=== PATIENT | male | born 1940 | race Caucasian/White ===

== ENCOUNTER → 2019-11-10 | Day surgery (SDC) | payer MEDICARE, BC ==
[2019-11-03 15:18] LABS: PRE OP INR 1.1 INR; PRE OP PROTIME 11.1 SECONDS (9.0-12.0)
[2019-11-03 15:21] LABS: BASOPHILS # (AUTO) 0.1 X10'3 (0-0.2); BASOPHILS % (AUTO) 1.1 % (0-1); EOSINOPHILS # (AUTO) 0.2 X10'3 (0-0.9); EOSINOPHILS % (AUTO) 3.5 % (0-6); LYMPHOCYTES # (AUTO) 2.3 X10'3 (1.1-4.8); LYMPHOCYTES % (AUTO) 34.9 % (21-51); MEAN CORPUSCULAR HEMOGLOBIN 34.9 PG (27.0-31.0); MEAN CORPUSCULAR HGB CONC 34.8 g/dL (33.0-36.5); MEAN CORPUSCULAR VOLUME 100.3 FL (78-98); MEAN PLATELET VOLUME 10.3 FL (7.4-10.4); MONOCYTES # (AUTO) 0.8 X10'3 (0-0.9); MONOCYTES % (AUTO) 12.7 % (2-12); NEUTROPHILS # (AUTO) 3.1 X10'3 (1.8-7.7); NEUTROPHILS % (AUTO) 47.8 % (42-75); PRE OP HEMATOCRIT 44.9 % (42.0-52.0); PRE OP HEMOGLOBIN 15.6 g/dL (14.0-17.9); PRE OP PLATELET COUNT 160 X10'3 (140-440); RED BLOOD COUNT 4.47 X10'6 (4.70-6.10); RED CELL DISTRIBUTION WIDTH 14.1 % (11.5-14.5)
[2019-11-03 15:28] LABS: ALBUMIN 4.1 G/DL (3.4-5.0); ALBUMIN/GLOBULIN RATIO 1.4 (1.1-1.5); ALKALINE PHOSPHATASE 103 IU/L (46-116); BLOOD UREA NITROGEN 16 MG/DL (7-18); BUN/CREATININE RATIO 15.5 (5.4-32.0); CALCIUM 9.1 MG/DL (8.5-10.1); CHLORIDE 104 MMOL/L (99-107); CREATININE 1.03 MG/DL (0.60-1.10); PRE OP ALT 23 U/L (30-65); PRE OP ANION GAP 5 (8-16); PRE OP AST 17 U/L (10-37); PRE OP BILIRUB, TOTAL 1.2 MG/DL (0.0-1.0); PRE OP GLUCOSE 120 MG/DL (70-104); PRE OP POTASSIUM 4.3 MMOL/L (3.4-5.1); PRE OP SODIUM 140 MMOL/L (135-145); TOTAL CARBON DIOXIDE 31.5 MMOL/L (24-32); TOTAL PROTEIN 7.1 G/DL (6.4-8.2); eGFR 69 ML/MIN
[2019-11-10] VITALS (15 sets, daily range): BP systolic 96–158; BP diastolic 52–88
[~2019-11-10] VITALS: Ht 188 cm; Wt 83.9 kg
[~2019-11-10] MED LIST: AMIO200T61 PO; CARV-50 PO; DOCUMENT DATE & TIME OF BETA-BLOCKER PO ONE; FLO0.4C PO; LEVO100T PO; MIDAZolam 5mg/5ml vial ONE; SULF1TAB49 PO; ampicillin inj 1 GM in normal saline 100ml IV soln 100 ML IV ONE; famotidine 20mg tablet PO ONE; fentaNYL/PF 50MCG/1 ML 2ML syringe IV PRN; fentaNYL/PF 50MCG/1 ML 2ML syringe ONE; gentamicin inj 400 MG in normal saline 100ml IV soln 100 ML IV ONE; hydrALAZINE 20mg/ml inj. IV PRN; labetalol 20mg/4ml (5mg/ml) syringe IV PRN; morphine 4 MG/ML inj SYRINge IV PRN; ondansetron/PF 4mg/2ml inj IV PRN; ringers solution, lacted 1,000 ML IV SCH
--- NOTE | 2019-11-10 11:47 | NUR ---
Received from OR via SURGICAL BED , accompanied by Anesthesiologist NARDA and report given by Anesthesiolgist. PATIENT WITH 18G PIV IN LEFT UE RUNNING LR AT 100. DENIES PAIN. SENSATION LEVEL AT L1 CURRENTLY. [address] DASILVA PRESENT WITH CLEAR URINE. Addendum: 11/10/19 at 1209 by Geovani Hendricks RN, RN Amended: Links added.
--- NOTE | 2019-11-10 12:16 | NUR ---
ACCUCHLEÓN OF 96 IN RR Addendum: 11/10/19 at 1216 by Geovani Yip - HARMEET RN Amended: Links added.
--- NOTE | 2019-11-10 12:47 | NUR ---
ALL CRITERIA FOR TRANSFER TO THE FLOOR HAS BEEN ACHIEVED. VSS. BED LOW, CALL LIGHT AND VS. SET IN PLACE. RN PRESENT TO ACCEPT CARE. PATIENT RESTING COMFORTABLY IN BED. BELONGINGS SENT WITH PATIENT. DRESSINGS CDI. PATIENT VSS. DENIES PAIN. URINE IN CATHETER IS CLEAR. AT BEDSIDE, BELONGINGS WITH PATIENT. RN PRESENT AT BEDSIDE TO ACCEPT CARE. Addendum: 11/10/19 at 1254 by Geovani Yip - HARMEET RN Amended: Links added.
--- NOTE | 2019-11-10 18:00 | NUR ---
Pt initally did not appear safe to discharge due to temperature regulation and return of lower extremity function after spinal. I called Dr Farias to ask about possiblity of admit orders if patient was not appropriate to send home. Also notified him that there was some blood now in urine bag. Color was a light fruit punch color, not dark and no clots. Pt checked again for safety of mobility prior to 1730 and he was much more stable and after bear hugger was on for more than an hour was getting much better reading for temperature. 98.0. Patient felt better about discharge at that point and did to so we did not need to do discharge orders and pt was able to safely go home with leg bag and night bag per dr farias order and will continue home meds with follow up with at scheduled appt. Pt encouraged to drink pleanty of fluids and watch urine output color, rest if darkening and call Dr farias or come back to ER with issues. Recovery room discharge done with guidance from Geovani GAreading recovery teacher room. Floor discharge was not done since patient was not admitted.
--- NOTE | 2019-11-10 18:53 | NUR ---
PATIENT BROUGHT TO FLOOR FOLLOWING SPINAL ANESTHESIA, REQUESTED PATIENT BE HELD UNTIL THEY COULD WALK SAFELY ONCE ANESTHESIA WAS METABOLIZED. Patient discharged home into the care of after walking the unit without issue and lifting and depressing legs against weight. Patient IV removed, left with all belongs, verbalized understanding of discharge instructions and care of the rodriguez as well as follow up. Patient was alert, oriented, and appropriate for discharge and advised on the warning signs and symptoms to look for regarding a need to return to the ER or contact MD.
--- NOTE | 2019-11-10 19:15 | NUR ---
Patient was 97.3 upon transfer from recovery, so RN Geovani came to the floor with bear hugger heater and patient's temperature mendel 98.0 orally after bear hugger utilization. Patient was on the floor from approximately 1230 to 1800 until the return of motor function post anesthesia per MD Peralta. MD notified about possibility to keep patient overnight if motor function was not satisfactory. Rechecked at 1645 and full leg function had returned, and patient comfortable with progress.
== END | disposition home or self-care (01) ==
LOC: PAS 09:21 → EDSTATUS 12:30
PROVIDERS: ATTEND Urology
DX: N40.1 Benign prostatic hyperplasia with lower urinary tract symptoms (principal); N13.8 Other obstructive and reflux uropathy; N41.1 Chronic prostatitis; N41.0 Acute prostatitis; I10 Essential (primary) hypertension; I25.2 Old myocardial infarction; Z87.442 Personal history of urinary calculi; Z87.891 Personal history of nicotine dependence; Z95.5 Presence of coronary angioplasty implant and graft; Z98.890 Other specified postprocedural states; Z79.899 Other long term (current) drug therapy; Z79.01 Long term (current) use of anticoagulants
CPT/HCPCS: 36415; 52500; 52601; 80053; 82948; 84443; 85025; 85610; 85730; 86885; 86900; 86901; J0290; J1580; J2250; J3010; J7120; A4346; A4355; A4615

== ENCOUNTER 2019-11-13 06:21 | Emergency (ER) | payer MEDICARE, BC ==
[~2019-11-13] VITALS: Ht 188 cm; Wt 82.1 kg
[~2019-11-13 06:21] MED LIST changes: -DOCUMENT DATE & TIME OF BETA-BLOCKER PO ONE; -MIDAZolam 5mg/5ml vial ONE; -ampicillin inj 1 GM in normal saline 100ml IV soln 100 ML IV ONE; -famotidine 20mg tablet PO ONE; -fentaNYL/PF 50MCG/1 ML 2ML syringe IV PRN; -fentaNYL/PF 50MCG/1 ML 2ML syringe ONE; -gentamicin inj 400 MG in normal saline 100ml IV soln 100 ML IV ONE; -hydrALAZINE 20mg/ml inj. IV PRN; -labetalol 20mg/4ml (5mg/ml) syringe IV PRN; -morphine 4 MG/ML inj SYRINge IV PRN; -ondansetron/PF 4mg/2ml inj IV PRN; -ringers solution, lacted 1,000 ML IV SCH
[2019-11-13 08:02] VITALS: BP 182/104
[2019-11-13 09:16] LABS: CLARITY,URINE CLOUDY (Clear); COLOR,URINE RED (Yellow); GLUCOSE, URINE NEGATIVE (Neg); KETONES,URINE NEGATIVE (Neg); LEUKOCYTE ESTERASE ,URINE SMALL (Neg); NITRITES, URINE NEGATIVE (Neg); OCCULT BLOOD,URINE LARGE (Neg); PROTEIN,URINE 100 mg/dl (Neg)
[2019-11-13] MEDS ORDERED: morphine 4 MG/ML inj SYRINge IM ONE (09:25)
[2019-11-13 09:39] LABS: UA COLLECTION TYPE FOLEY CATH
[2019-11-13 09:41] LABS: RBC,URINE TNTC /HPF (0-2); WBC,URINE 0-4 /HPF (0-4)
[2019-11-13 09:42] LABS: BACTERIA,URINE NONE SEEN /HPF (Neg); MUCUS STRANDS FEW /LPF (Neg); SQUAMOUS EPITHELIAL CELL,UR NONE SEEN /LPF (FEW)
[2019-11-13 09:43] LABS: TRANSITIONAL EPI CELLS,URINE FEW /HPF
--- NOTE | 2019-11-13 10:10 | NUR ---
CATH REPLACED WITH A [address]
== END 2019-11-13 10:12 | disposition home or self-care (01) ==
LOC: ER 06:22
DX: T83.038A Leakage of other urinary catheter, initial encounter (principal); I25.10 Atherosclerotic heart disease of native coronary artery without angina pectoris; E78.00 Pure hypercholesterolemia, unspecified; Z79.899 Other long term (current) drug therapy; Y84.6 Urinary catheterization as the cause of abnormal reaction of the patient, or of later complication, without mention of misadventure at the time of the procedure; Y92.89 Other specified places as the place of occurrence of the external cause
CPT/HCPCS: 51700; 81001; 87088; 96372; 99284; J2270; 88305

== ENCOUNTER 2021-08-06 10:03 | Outpatient (CLI) | payer MEDICARE, BC ==
[~2021-08-06] VITALS: Ht 188 cm; Wt 88.5 kg
[2021-08-06 10:42] LABS: BASOPHILS # (AUTO) 0.1 X10'3 (0-0.2); BASOPHILS % (AUTO) 0.8 % (0-1); EOSINOPHILS # (AUTO) 0.5 X10'3 (0-0.9); EOSINOPHILS % (AUTO) 7.3 % (0-6); HEMOGLOBIN 16.2 g/dl (14.0-17.9); LYMPHOCYTES # (AUTO) 2.3 X10'3 (1.1-4.8); LYMPHOCYTES % (AUTO) 31.7 % (21-51); MEAN CORPUSCULAR HEMOGLOBIN 33.5 PG (27.0-31.0); MEAN CORPUSCULAR HGB CONC 34.4 g/dL (33.0-36.5); MEAN CORPUSCULAR VOLUME 97.3 FL (78-98); MEAN PLATELET VOLUME 9.9 FL (7.4-10.4); MONOCYTES # (AUTO) 0.9 X10'3 (0-0.9); MONOCYTES % (AUTO) 12.2 % (2-12); NEUTROPHILS # (AUTO) 3.5 X10'3 (1.8-7.7); PLATELET COUNT 179 X10'3 (140-440); RED BLOOD COUNT 4.84 X10'6 (4.70-6.10); RED CELL DISTRIBUTION WIDTH 13.7 % (11.5-14.5); WHITE BLOOD COUNT 7.2 X10'3 (4.5-11.0)
[2021-08-06 10:55] LABS: PARTIAL THROMBOPLASTIN TIME 27 SECONDS (22-32)
[2021-08-06] MEDS ORDERED: IODIXANOL 320 MG/ML INFUS..BTL 50ML IV ONE (10:56)
[2021-08-06] MEDS ORDERED: IODIXANOL 320 MG/ML INFUS..BTL 100ML IV ONE ×2 (10:56→11:46)
[2021-08-06 10:57] LABS: ALANINE AMINOTRANSFERASE 27 U/L (12-78); ALBUMIN 3.9 G/DL (3.4-5.0); ALBUMIN/GLOBULIN RATIO 1.3 (1.1-1.5); ALKALINE PHOSPHATASE 91 IU/L (46-116); ANION GAP 8 (8-16); ASPARTATE AMINO TRANSFERASE 19 U/L (10-37); BILIRUBIN,TOTAL 1.6 MG/DL (0.1-1.0); BLOOD UREA NITROGEN 17 MG/DL (7-18); BUN/CREATININE RATIO 17.2 (5.4-32.0); CALCIUM 8.5 MG/DL (8.5-10.1); CHLORIDE 106 MMOL/L (99-107); CREATININE 0.99 MG/DL (0.60-1.10); GLUCOSE 126 MG/DL (70-104); POTASSIUM 4.1 MMOL/L (3.5-5.1); SODIUM 142 MMOL/L (135-145); TOTAL CARBON DIOXIDE 28.2 MMOL/L (24-32); TOTAL PROTEIN 6.8 G/DL (6.4-8.2); eGFR 72 ML/MIN
[2021-08-06] MEDS ORDERED: albuterol 2.5 MG/3 ML nebule NEB ONE (12:50)
[2021-08-21] MEDS ORDERED: ASPI-611 PO (18:49)
== END 2021-08-06 23:59 | disposition home or self-care (01) ==
LOC: RAD 10:03
PROVIDERS: ATTEND Internal Medicine Cardiovascular Disease
DX: I65.23 Occlusion and stenosis of bilateral carotid arteries (principal); I25.10 Atherosclerotic heart disease of native coronary artery without angina pectoris; I35.0 Nonrheumatic aortic (valve) stenosis; R94.2 Abnormal results of pulmonary function studies; Z20.822 Contact with and (suspected) exposure to COVID-19
CPT/HCPCS: 36415; 71046; 71275; 74174; 80053; 85025; 85610; 85730; 87635; 93005; 93880; 94060; 94727; 94729; 94760; C9803; Q9967

== ENCOUNTER 2021-08-28 09:06 | Inpatient (IN) | payer MEDICARE, BC ==
[2021-08-26 11:58] LABS: BASOPHILS % (AUTO) 0.8 % (0-1); EOSINOPHILS # (AUTO) 0.3 X10'3 (0-0.9); EOSINOPHILS % (AUTO) 5.1 % (0-6); LYMPHOCYTES # (AUTO) 2.2 X10'3 (1.1-4.8); LYMPHOCYTES % (AUTO) 37.9 % (21-51); MEAN CORPUSCULAR HEMOGLOBIN 34.1 PG (27.0-31.0); MEAN CORPUSCULAR HGB CONC 34.2 g/dL (33.0-36.5); MEAN CORPUSCULAR VOLUME 99.7 FL (78-98); MEAN PLATELET VOLUME 10.9 FL (7.4-10.4); MONOCYTES # (AUTO) 0.8 X10'3 (0-0.9); MONOCYTES % (AUTO) 14.3 % (2-12); NEUTROPHILS # (AUTO) 2.5 X10'3 (1.8-7.7); NEUTROPHILS % (AUTO) 41.9 % (42-75); PRE OP HEMOGLOBIN 15.7 g/dL (14.0-17.9); PRE OP PLATELET COUNT 172 X10'3 (140-440); RED BLOOD COUNT 4.62 X10'6 (4.70-6.10); RED CELL DISTRIBUTION WIDTH 14.1 % (11.5-14.5)
[2021-08-26 12:04] LABS: PRE OP INR 1.1 INR; PRE OP PROTIME 11.1 SECONDS (9.0-12.0)
[2021-08-26 12:16] LABS: ALBUMIN 4.1 G/DL (3.4-5.0); ALBUMIN/GLOBULIN RATIO 1.4 (1.1-1.5); ALKALINE PHOSPHATASE 78 IU/L (46-116); BLOOD UREA NITROGEN 13 MG/DL (7-18); BUN/CREATININE RATIO 13.8 (5.4-32.0); CHLORIDE 108 MMOL/L (99-107); CREATININE 0.94 MG/DL (0.60-1.10); PRE OP ALT 24 U/L (30-65); PRE OP ANION GAP 8 (8-16); PRE OP AST 17 U/L (10-37); PRE OP BILIRUB, TOTAL 1.9 MG/DL (0.0-1.0); PRE OP GLUCOSE 117 MG/DL (70-104); PRE OP POTASSIUM 3.9 MMOL/L (3.4-5.1); PRE OP SODIUM 143 MMOL/L (135-145); TOTAL CARBON DIOXIDE 27.1 MMOL/L (24-32); eGFR 77 ML/MIN
[2021-08-26 12:26] LABS: LARGE PLATELETS FEW; PLATELET ESTIMATE NORMAL
[2021-08-28] VITALS (14 sets, daily range): BP systolic 113–140; BP diastolic 58–88
[~2021-08-28] VITALS: Ht 188 cm; Wt 88.5 kg
[2021-08-28] MEDS: nitroPRUSSIDE (NIPRIDE) (200MCG/ML) 100ML Drip IV SCH ×2 (05:30→20:35)
[2021-08-28] MEDS: phenylephrine 50 MG in NS 250ml IVPB IV SCH (08:24)
[~2021-08-28 09:06] MED LIST changes: -AMIO200T61 PO; +ASPI-611 PO; +DOCUMENT DATE & TIME OF BETA-BLOCKER PO ONE; -SULF1TAB49 PO; +aspirin 325mg tablet PO ONE; +cefazolin/dext.iso 2gm/100ml IV ONE; +famotidine 20mg tablet PO ONE; +ondansetron/PF 4mg/2ml inj IV PRN; +phenylephrine 50 MG in NS 250ml IVPB IV SCH; +ringers solution, lacted 1,000 ML IV SCH; +vancomycin 1,500 MG in NS 300ml IV soln IV ONE
[2021-08-28 11:53] LABS: CLARITY,URINE CLEAR (Clear); COLOR,URINE STRAW (Yellow); PH,URINE 7.5 (4.8-8.0); UA COLLECTION TYPE VOIDED
[2021-08-28 11:54] LABS: GLUCOSE, URINE NEGATIVE (Neg); PROTEIN,URINE NEGATIVE (Neg)
[2021-08-28 11:55] LABS: KETONES,URINE 40 mg/dl (Neg); LEUKOCYTE ESTERASE ,URINE SMALL (Neg); NITRITES, URINE NEGATIVE (Neg); OCCULT BLOOD,URINE NEGATIVE (Neg); UROBILINOGEN,URINE 0.2 E.U/dL (0.2-1.0)
[2021-08-28 12:13] LABS: SQUAMOUS EPITHELIAL CELL,UR FEW /LPF (FEW); TRANSITIONAL EPI CELLS,URINE MODERATE /HPF
[2021-08-28 12:14] LABS: BACTERIA,URINE FEW /HPF (Neg); RBC,URINE 0-2 /HPF (0-2); WBC,URINE 0-4 /HPF (0-4)
[2021-08-28] MEDS ORDERED: iohexol 350MG/ML 100ml bottle IV ONE (12:49)
[2021-08-28] MEDS ORDERED: iohexol 350 MG/ML 50ML vial IV ONE (12:49)
[2021-08-28] MEDS ORDERED: heparin 1,000 UNITS/NS 500ml 500 ML ONE (12:49)
[2021-08-28] MEDS ORDERED: LIDOcaine 1% (10mg/ml)w/preservative injection 20ml MDV ONE (12:49)
[2021-08-28] MEDS ORDERED: protamine sulf. 10mg/ml inj. IV ONE (12:56)
[2021-08-28] MEDS ORDERED: fentaNYL/PF 50MCG/1 ML 2ML syringe ONE (12:57)
[2021-08-28] MEDS ORDERED: midazolam 1 mg/ML 2ml injection ONE (12:58)
[2021-08-28] MEDS ORDERED: propofol inj 20 ML IV ONE (13:00)
[2021-08-28] MEDS ORDERED: heparin 1,000unit/ml 10ml vial 10 ML ONE (13:17)
[2021-08-28] MEDS ORDERED: proCHLORperazine 10 MG/2 ml inj IV PRN (13:35)
[2021-08-28] MEDS ORDERED: ringers solution, lacted 1,000 ML IV SCH (13:35)
[2021-08-28] MEDS ORDERED: meperidine/PF 25mg/ml syringe IV PRN ×3 (13:35)
[2021-08-28] MEDS ORDERED: ondansetron/PF 4mg/2ml inj IV PRN ×2 (13:35→14:20)
[2021-08-28] MEDS ORDERED: morphine 2 MG/ML inj. syringe IV PRN (13:35)
[2021-08-28] MEDS ORDERED: morphine 4 MG/ML inj SYRINge IV PRN (13:35)
[2021-08-28] MEDS ORDERED: protamine sulfate 10mg/ml inj. ONE ×2 (14:03→14:04)
[2021-08-28] MEDS ORDERED: magnesium 4gm in 100ml NS 100 ML IV PRN (14:20)
[2021-08-28] MEDS ORDERED: labetalol 20mg/4ml (5mg/ml) syringe IV PRN (14:20)
[2021-08-28] MEDS ORDERED: diphenhydrAMINE 25mg capsule PO PRN (14:20)
[2021-08-28] MEDS ORDERED: hydrALAZINE 20mg/ml inj. IV PRN (14:20)
[2021-08-28] MEDS ORDERED: ALPRAZolam 0.25mg tablet PO PRN (14:20)
[2021-08-28] MEDS ORDERED: magnesium 2GM in 50ml NS 50 ML IV PRN (14:20)
[2021-08-28] MEDS ORDERED: potassium Cl 40MEQ/1/2NS 520ml 520 ML IV PRN (14:20)
[2021-08-28] MEDS ORDERED: potassium Cl 20 mEq SR tablet PO PRN (14:20)
[2021-08-28] MEDS ORDERED: docusate sod 100mg capsule PO PRN (14:20)
[2021-08-28] MEDS ORDERED: potassium CL 10mEq/100ml bag 100 ML IV PRN (14:20)
[2021-08-28] MEDS ORDERED: pantoprazole 40mg Tablet.DR PO PRN (14:20)
--- NOTE | 2021-08-28 14:20 | NUR ---
Received from OR via BED , accompanied by Anesthesiologist LAURENCE and report given by Anesthesiolgist. patient with bilateral inguinal dressings are cdi no ss of hematoma, neurologically intact, smile all symetrical tongue is midline, director of clinical services equal, dorsalis on feet are palpable/doppler art line in left UE an 18G right hand running LR at 100 scds donned, patient denies pain. Addendum: 08/28/21 at 1450 by Geovani Hendricks RN, RN Amended: Links added.
--- NOTE | 2021-08-28 15:16 | NUR ---
SECOND CHECK ON INGUINAL SITES. NOTH STILL CDI AND SOFT TO TOUCH. NO BLEEDING OR SWELLING AT THIS TIME. + DPS ON BILATERAL FEET. VSS. VOIDED AND PATIENT RESTING COMFORTABLY. STILL NEUROLOGICALLY INTACT WITH PUSH PULLS ETC. Addendum: 08/28/21 at 1517 by Geovani Hendricks RN, RN Amended: Links added.
--- NOTE | 2021-08-28 15:49 | NUR ---
CARE TRANSFERED TO HARMEET DAVID. VSS. BED LOW, CALL LIGHT PRESENT. GAS TREATER KEVIN PRESENT TO ASSIST WITH SET UP OF VS....ETC. PATIENT DENIES PAIN. INGUINAL SITES BOTH CDI. + DPS ON DOPPLER/ MANUAL TOUCH BY HARMEET DAVID. PATIENT WITH NO C.O. AT THIS TIME. Addendum: 08/28/21 at 1554 by Geovani Yip - HARMEET GA Amended: Links added.
[2021-08-28] MEDS: ceFAZolin 1GM/D5W- ADD-VANTAGE 50 ML IV SCH (16:25)
[2021-08-28] MEDS: sod chloride 0.9% 10ml flush syringe IV SCH (17:25)
[2021-08-28] MEDS: acetaminophen 325mg tablet PO PRN (17:26)
--- NOTE | 2021-08-28 18:00 | NUR ---
Patient in room PCU 3013. I have received report from Yvette GA and had the opportunity to ask questions and assume patient care.
--- NOTE | 2021-08-28 18:21 | NUR ---
Problems reprioritized. Patient report given, questions answered & plan of care reviewed with HARMEET HENNING.
[2021-08-28] MEDS: vancomycin/NS 1 GM ADD-VANTAGE 250 ML IV SCH (21:40)
[2021-08-28] MEDS: carvedilol 6.25mg tablet PO SCH (21:41)
[2021-08-28] MEDS: normal saline 1000ml 1,000 ML IV SCH (21:45)
[2021-08-29] VITALS: BP 127/61
[2021-08-29] MEDS: sod chloride 0.9% 10ml flush syringe IV SCH ×2 (00:11→08:01)
[2021-08-29] MEDS: ceFAZolin 1GM/D5W- ADD-VANTAGE 50 ML IV SCH ×2 (00:11→08:01)
[2021-08-29] MEDS: normal saline 1000ml 1,000 ML IV SCH ×2 (00:20→10:38)
[2021-08-29 02:00] VITALS: BP 129/67
[2021-08-29] MEDS: phenylephrine 50 MG in NS 250ml IVPB IV SCH (03:15)
[2021-08-29 04:00] VITALS: BP 130/61
[2021-08-29 05:08] LABS: BASOPHILS # (AUTO) 0.1 X10'3 (0-0.2); BASOPHILS % (AUTO) 0.7 % (0-1); EOSINOPHILS # (AUTO) 0.1 X10'3 (0-0.9); EOSINOPHILS % (AUTO) 1.4 % (0-6); HEMATOCRIT 35.1 % (42.0-52.0); HEMOGLOBIN 11.8 g/dl (14.0-17.9); LYMPHOCYTES # (AUTO) 1.3 X10'3 (1.1-4.8); LYMPHOCYTES % (AUTO) 13.3 % (21-51); MEAN CORPUSCULAR HGB CONC 33.5 g/dL (33.0-36.5); MEAN CORPUSCULAR VOLUME 92.5 FL (78-98); MEAN PLATELET VOLUME 9.4 FL (7.4-10.4); MONOCYTES % (AUTO) 10.3 % (2-12); NEUTROPHILS # (AUTO) 7.4 X10'3 (1.8-7.7); NEUTROPHILS % (AUTO) 74.3 % (42-75); PLATELET COUNT 115 X10'3 (140-440); RED CELL DISTRIBUTION WIDTH 13.9 % (11.5-14.5); WHITE BLOOD COUNT 9.9 X10'3 (4.5-11.0)
[2021-08-29 05:24] LABS: ALANINE AMINOTRANSFERASE 17 U/L (12-78); ALBUMIN 3.1 G/DL (3.4-5.0); ALBUMIN/GLOBULIN RATIO 1.1 (1.1-1.5); ALKALINE PHOSPHATASE 59 IU/L (46-116); ANION GAP 7 (8-16); ASPARTATE AMINO TRANSFERASE 30 U/L (10-37); BILIRUBIN,TOTAL 0.6 MG/DL (0.1-1.0); BLOOD UREA NITROGEN 30 MG/DL (7-18); BUN/CREATININE RATIO 21.7 (5.4-32.0); CALCIUM 8.6 MG/DL (8.5-10.1); CHLORIDE 105 MMOL/L (99-107); CREATININE 1.38 MG/DL (0.60-1.10); GLUCOSE 94 MG/DL (70-104); MAGNESIUM 1.7 MG/DL (1.5-2.4); POTASSIUM 3.7 MMOL/L (3.5-5.1); SODIUM 143 MMOL/L (135-145); TOTAL CARBON DIOXIDE 31.2 MMOL/L (24-32); eGFR 49 ML/MIN
--- NOTE | 2021-08-29 06:45 | NUR ---
Patient in room PCU 3013. I have received report from VASILE GA and had the opportunity to ask questions and assume patient care.
[2021-08-29] MEDS ORDERED: levoTHYROXINE 100mcg tablet PO SCH (07:00)
[2021-08-29 08:00] VITALS: BP 105/83
[2021-08-29] MEDS ORDERED: aspirin 81mg, enteric-coated 1 TAB TABLET.DR PO SCH (08:00)
[2021-08-29] MEDS ORDERED: tamsulosin 0.4mg capsule PO SCH (08:00)
[2021-08-29] MEDS: carvedilol 6.25mg tablet PO SCH (08:00)
[2021-08-29] MEDS: vancomycin/NS 1 GM ADD-VANTAGE 250 ML IV SCH (08:01)
[2021-08-29] MEDS: nitroPRUSSIDE (NIPRIDE) (200MCG/ML) 100ML Drip IV SCH (10:49)
[2021-08-29 11:00] VITALS: BP 145/44
[2021-08-29] MEDS: acetaminophen 325mg tablet PO PRN (11:55)
[2021-08-29 12:00] VITALS: BP 145/44
--- NOTE | 2021-08-29 14:23 | NUR ---
Pt discharged home. at bedside. Pt verbalized understanding of instructions and follow up TAVR care. TAVR sites c/d/i. Pt taken to front lobby in wheelchair. ID and IV removed. driving home with him. VSS, steady gait.
== END 2021-08-29 14:14 | disposition home or self-care (01) | DRG 267 ==
LOC: UNDOADMIN 09:06 → PAS IN 09:06 → EDSTATUS 11:15 → PAS IN 14:22 → PCU 3S 15:40
PROVIDERS: ADMIT Internal Medicine Cardiovascular Disease; ATTEND Internal Medicine Cardiovascular Disease
PROC: B41D1ZZ Fluoroscopy of Aorta and Bilateral Lower Extremity Arteries using Low Osmolar Contrast (ICD-10-PCS; 2021-08-28)
PROC: B24BZZ4 Ultrasonography of Heart with Aorta, Transesophageal (ICD-10-PCS; 2021-08-28)
PROC: 02RF38Z Replacement of Aortic Valve with Zooplastic Tissue, Percutaneous Approach (ICD-10-PCS; principal; 2021-08-28 12:56)
DX: I35.0 Nonrheumatic aortic (valve) stenosis (principal); Z00.6 Encounter for examination for normal comparison and control in clinical research program; I25.10 Atherosclerotic heart disease of native coronary artery without angina pectoris; R11.0 Nausea
CPT/HCPCS: 33361; 36415; 71045; 80053; 81001; 82948; 83735; 83880; 84443; 85008; 85025; 85347; 85610; 85730; 86885; 86900; 86901; 86920; 87081; 87088; 87635; 93005; 93308; A4618; A6258; A6449; C1756; C1760; C1769; C1892; C1894; G0378; J0690; J1644; J2001; J2250; J2370; J2405; J2704; J2720; J3010; J3370; J3490; J7030; J7040; J7050; J7120; Q9967

== ENCOUNTER 2021-09-25 15:13 | Outpatient (CLI) | payer MEDICARE, BC ==
[~2021-09-25 15:13] MED LIST changes: -DOCUMENT DATE & TIME OF BETA-BLOCKER PO ONE; -aspirin 325mg tablet PO ONE; -cefazolin/dext.iso 2gm/100ml IV ONE; -famotidine 20mg tablet PO ONE; -ondansetron/PF 4mg/2ml inj IV PRN; -phenylephrine 50 MG in NS 250ml IVPB IV SCH; -ringers solution, lacted 1,000 ML IV SCH; -vancomycin 1,500 MG in NS 300ml IV soln IV ONE
[2021-09-25 16:39] VITALS: BP 120/59
--- NOTE | 2021-09-25 16:40 | NUR ---
Patient and his were seen today for TAVR follow-up with Dr. Casas. KCQ12 completed. Walk test completed. Vital signs measured. Echo and EKG reviewed with patient along with current condition of patients symptoms.
== END 2021-09-25 23:59 | disposition home or self-care (01) ==
LOC: TAVR 15:13
PROVIDERS: ATTEND Internal Medicine Cardiovascular Disease
DX: I10 Essential (primary) hypertension (principal); Z95.2 Presence of prosthetic heart valve; Z48.812 Encounter for surgical aftercare following surgery on the circulatory system
CPT/HCPCS: 93005